=== PATIENT | female | born 1970 | race Caucasian/White ===

== ENCOUNTER 2019-05-27 18:17 | Emergency (ER) | payer BC ==
[2019-05-27] MEDS ORDERED: IBUPROFEN 600 MG TABLET PO ONE (18:28)
[2019-05-27] MEDS ORDERED: DIAZEPAM 5 MG TABLET PO ONE (18:28)
--- NOTE | 2019-05-27 18:32 | Emergency Department Record ---
History of Present Illness - General Chief Complaint: Back Pain/Injury Stated Complaint: LOWER BACK PAIN Time Seen by Provider: 05/27/19 18:19 Source: Patient Mode of Arrival: Ambulatory Limitations: No limitations - History of Present Illness Initial Comments: 49 yo female presents to ED for evaluation of left sided flank pain symptoms for the past 2 days, denies specific injury or trauma, but reports that she was having difficulty urinating as well. Patient reports that she started taking Azo for her symptoms without significant improvement. Patient denies fevers, chills, nausea, or vomiting symptoms. Patient denies health problems at her [facility]. [facility] Complaint: Back pain Onset/Timin -: Days(s) Severity: Moderate Quality: Aching Consistency: Constant Improves With: None Worsens With: Movement, Other (Palpation) Context: Unknown - Related Data Previous Rx's Medication Instructions Recorded Cephalexin [Keflex] 500 mg PO TID #21 cap 05/27/19 Allergies Allergy/AdvReac Type Severity Reaction Status Date / Time hydromorphone [From Dilaudid] Allergy VOMITING Verified 05/27/19 19:27 morphine Allergy VOMITING Verified 05/27/19 19:27 Review of Systems Constitutional: Denies: Chills, Fever, Malaise, Night sweats Eyes: Denies: Eye discharge, Eye pain ENT: Denies: Congestion, Ear pain, Epistaxis Respiratory: Denies: Cough, Dyspnea Cardiovascular: Denies: Chest pain, Dyspnea on exertion Endocrine: Denies: Fatigue, Heat or cold intolerance Gastrointestinal: Denies: Constipation, Nausea, Vomiting Genitourinary: Reports: Dysuria. Denies: Incontinence, Retention Musculoskeletal: Reports: Back pain. Denies: Arthralgia, Gout, Joint swelling Skin: Denies: Bruising, Change in color Neurological: Denies: Abnormal gait, Confusion, Headache, Tingling, Tremors Psychiatric: Denies: Anxiety Hematological/Lymphatic: Denies: Anemia, Blood Clots Physical Exam - General General Appearance: Alert, Oriented x3, Cooperative, Mild distress Limitations: No limitations - Head Head exam: Atraumatic, Normocephalic, Normal inspection Head exam detail: negative: Abrasion, Contusion, Sherwood's sign, General tenderness, Hematoma, Laceration - Eye Eye exam: Normal appearance. negative: Conjunctival injection, Periorbital swelling, Periorbital tenderness, Scleral icterus - ENT Ear exam: negative: Auricular hematoma, Auricular trauma Nasal Exam: negative: Active bleeding, Discharge, Dried blood, Foreign body Mouth exam: negative: Drooling, Laceration, Muffled voice, Tongue elevation - Neck Neck exam: Normal inspection. negative: Meningismus, Tenderness - Respiratory Respiratory exam: Normal lung sounds bilaterally. negative: Respiratory distress, Rhonchi, Stridor, Wheezes - Cardiovascular Cardiovascular Exam: Regular rate, Normal rhythm, Normal heart sounds - GI/Abdominal GI/Abdominal exam: Soft. negative: Distended, Rebound, Rigid, Tenderness - Rectal Rectal exam: Deferred - exam: Deferred - Extremities Extremities exam: Normal inspection. negative: Pedal edema, Tenderness - Back Back exam: Reports: CVA tenderness (L). Denies: Paraspinal tenderness - Neurological Neurological exam: Alert, Normal gait, Oriented X3 - Psychiatric Psychiatric exam: Normal affect, Normal mood - Skin Skin exam: Normal color. negative: Abrasion Type of lesion: negative: abrasion Course - Reevaluation(s) Reevaluation #1: 05/27/19 19:30 Patient's urinalysis was reviewed: RBCs 16-25 WBC 21-35 Epithelial: 3-6 3+ Bacteria Patient was updated on all results, will initiate treatment with Rocephin. Given patient's left flank pain symptoms, will perform CT imaging to exclude acute ureteralithiasis with infection. Patient is in agreement with the plan of care as discussed. Reevaluation #2: 05/27/19 20:04 Laboratory studies were reviewed and appear grossly unremarkable for an acute process. Reevaluation #3: 05/27/19 21:03 CT Abdomen and Pelvis: No acute urinary tract calculi Constipation Patient was updated on all results, reports that she is feeling much better. Patient appears stable for discharge with outpatient treatment for pyelonephritis. Patient was updated on all results, appears stable for discharge at this time. Medical Decision Making - Lab Data Result diagrams: 05/27/19 19:15 05/27/19 19:15 Disposition Disposition: Discharge Clinical Impression: Pyelonephritis Disposition: Home, Self-Care Condition: (2) Stable Instructions: Kidney Infection (ED) Additional Instructions: Return to ED if your symptoms worsen or if you have any concerns. Keflex as directed. Follow-up with your family doctor in 3-5 days as directed. Prescriptions: Cephalexin [Keflex] 500 mg PO TID #21 cap Forms: Patient Portal Access Time of Disposition: 21:05 Quality - Quality Measures Quality Measures: N/A - Blood Pressure Screening Does Patient Have Any of the Following: No Blood Pressure Classification: Normal BP Reading Systolic Measurement: 90 Diastolic Measurement: 59 Screening for High Blood Pressure: < Normal BP, F/U Not Required > [G8783]
[2019-05-27 18:40] LABS: URINE BILIRUBIN NEGATIVE (NEGATIVE); URINE BLOOD MODERATE (NEGATIVE); URINE GLUCOSE (UA) NEGATIVE (NEGATIVE); URINE KETONE TRACE (NEGATIVE); URINE LEUKOCYTE ESTERASE SMALL (NEGATIVE); URINE NITRITE POSITIVE (NEGATIVE)
[2019-05-27 18:48] LABS: URINE APPEARANCE CLOUDY; URINE COLOR DARK YELLOW
[2019-05-27 18:49] LABS: URINE BACTERIA 3+; URINE RBC 16 - 25 (NONE SEEN); URINE WBC 21 - 35 (0-2/hpf)
[2019-05-27] MEDS ORDERED: CEFTRIAXONE 1GM/50ML BAG 1 GM/50 ML BAG IVPB ONE (18:56)
[2019-05-27 19:30] LABS: ABSOLUTE NEUTROPHIL COUNT 5.03; BASO % 0.6 % (0-6); EOS % 1.2 % (0-6); GRAN % 61.9 % (47-80); HEMATOCRIT 41.5 % (35.0-47.0); HEMOGLOBIN 13.4 gm/dl (11.6-16.0); LYMPH % 29.8 % (16-45); MEAN CELL VOLUME 92.8 fl (81-97); MEAN CORPUSCULAR HGB CONC 32.3 g/dl (32-36); MEAN PLATELET VOLUME 9.9 fl (7.4-10.4); MONO % 6.5 % (0-9); PLATELET COUNT 171 K/uL (130-400); RED BLOOD COUNT 4.47 M/uL (3.80-5.40); RED CELL DISTRIBUTION WIDTH 13.7 % (11.5-14.5); WHITE BLOOD COUNT W/O DIFF 8.1 K/uL (4.2-12.2)
[2019-05-27 19:44] LABS: BLOOD UREA NITROGEN 13 mg/dL (6-20); CREATININE 0.8 mg/dL (0.5-0.9); EST GLOMERULAR FILTRATION RATE > 60 mL/min; TOTAL PROTEIN 7.1 g/dL (6.6-8.7)
[2019-05-27] MEDS ORDERED: 0.9 % SODIUM CHLORIDE 1000ML 1,000 ML IV SCH (19:45)
[2019-05-27 19:46] LABS: GLUCOSE,RANDOM 89 mg/dL (74-109)
[2019-05-27 19:49] LABS: ALB/GLOB RATIO 1.8 (1.1-1.8); ALBUMIN 4.6 g/dL (4.0-5.0); ALKALINE PHOSPHATASE 51 U/L (35-104); ALT/SGPT 12 U/L (<33); AST/SGOT 17 U/L (10.0-35.0)
--- NOTE | 2019-05-27 21:02 | CT SCAN REPORT ---
EXAMINATION: CT Abdomen and Pelvis without IV Contrast EXAM DATE: 05/27/2019 8:48 PM TECHNIQUE: Standard protocol CT imaging of the abdomen and pelvis was performed without intravenous c ontrast. INDICATION: left sided flank pain COMPARISON: None ENCOUNTER: Not applicable CT ABDOMEN AND PELVIS FINDINGS: Lung Bases: Included extent of the lung bases are clear. Hepatobiliary: The liver has a normal size with a smooth surface. Pancreas: The pancreas is normal. Spleen: The spleen is not enlarged. Adrenals: The adrenal glands are normal. Gastrointestinal: The stomach and small bowel are normal with no obstruction or inflammation. Appendi x is not seen although there are no pericecal inflammatory changes. Abundant fecal material in the pr oximal half of the colon. No diverticula or adjacent inflammation. Reproductive Organs: Unremarkable Lymphatic System: There is no adenopathy within the abdomen or pelvis. Vasculature: Normal caliber abdominal aorta Peritoneum: No free fluid, free air, or inflammation Assessment of the solid organs, soft tissues, and vascular structures is overall limited on noncontra st imaging, IMPRESSION: 1. No renal calculi or hydronephrosis. No acute inflammatory process within the abdomen or pelvis. 2. Constipation. Dictated by: Alejandro Alaniz MD on 05/27/2019 8:56 PM. .
== END 2019-05-27 21:28 | disposition home or self-care (01) ==
LOC: ER 18:17
DX: N10 Acute pyelonephritis (principal)
CPT/HCPCS: 74176; 80053; 81001; 85025; 96365; 99283; 99284; J0696; J7030